=== PATIENT | female | born 1945 | race Caucasian/White ===

== ENCOUNTER 2017-03-06 10:31 | Emergency (ER) | payer MEDICARE, OTHER ==
--- OUTSIDE RECORDS SUMMARY | 2017-03-06 11:21 | XMS REPORT | Continuity of Care Document ---
:1945 Author Organization [facility] ([facility]) Address [address] [place] [address] Phone [phone] Care Team Providers Name Role Phone Chaan Garcia Primary Care Provider [phone] Source Comments This disclosure is being made pursuant to the Care Everywhere program, applicable federal and state laws, and may not contain all informaitonavailable regarding this patient.[facility] ([facility]) Active Allergies and Adverse Reactions Allergen Noted Date Severity Reactions Comments Nitrofuran Analogues Angioedema,OTHER Hand swelling Current Medications Prescription Sig. Disp. Refills Start End Status Date Date pravastatin 10 mg Take 10 mg by Active tablet mouth 3 times weekly. METOPROLOL tartrate Take 12.5 mg by Active 25 mg tablet mouth 2 times 5 daily. Biotin 10,000 mcg Take 10,000 mcg by Active cap mouth daily. methotrexate 2.5 mg Take 6 tablets (15 78 tablet 1 Active tablet mg total) by mouth 6 every week. folic acid 800 mcg 1.5 tabs daily 180 tablet 3 Active tablet except 6 tabs one 6 day a week. naproxen 500 mg Take 1 tablet (500 180 tablet 3 Active tablet mg total) by mouth 6 2 times daily with meals. cholecalciferol Take 1 tablet 100 tablet 3 Active (VITAMIN D3) 1,000 (1,000 Units 6 unit tablet total) by mouth daily. Frequency unknown LACTOBACILLUS COMBO Take 1 capsule by Active NO.6 (PROBIOTIC mouth daily. COMPLEX PO) adalimumab (HUMIRA) Inject 0.8 mL (40 6 Syringe 12 Active 40 mg/0.8 mL mg total) 7 injection syringe subcutaneously every 14 days. gabapentin Take 1 capsule 90 capsule 4 Active (NEURONTIN) 300 mg (300 mg total) by 7 capsule mouth at bedtime. predniSONE 5 mg Take 1-4 tablets 60 tablet 1 Active tablet (5-20 mg total) by 7 mouth daily. For RA flares. zinc 50 mg tablet Take 50 mg by Discontinued mouth daily. 017 gabapentin Take 2 capsules 180 capsule 3 Discontinued (NEURONTIN) 300 mg (600 mg total) by 5 017 capsule mouth at bedtime predniSONE 5 mg Take 1-4 tablets 60 tablet 1 Discontinued tablet (5-20 mg total) by 6 017 mouth daily. For RA flares. adalimumab (HUMIRA) Inject 0.8 mL (40 6 Syringe 1 Discontinued 40 mg/0.8 mL mg total) 7 017 injection syringe subcutaneously every 14 days. Active Problems Problem Noted Date Neuropathy 09/17/2015 Hair loss 02/24/2015 Paroxysmal supraventricular tachycardia 02/18/2014 Overview: Per patient, identified on recent Holter monitor exam spring 2013. Tx by PCP with beta uvaldo. Pseudogout 12/27/2013 Overview: R knee 12/27/2013, per crystal exam. 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 CCP confirmed [facility] 2013. Hep B screen: immune --see media for report entered 02/2014, test done 2010. TB screen negative 02/2014 Rx history: Prednisone: intermittent use leflunomide 2004, failed as monotherapy Methotrexate 2001, again ~2005 (prior to care at [facility]) - 11/2008, stopped for elevated transaminases. Restarted 10/2009 - (Standing lab order renewed for [facility] 2014) Adalimumab (Humira) 2005 - 04/2011, dc'ed d/t cost. Restarted 02/2014 Hydroxychloroquine 01/2012 - 02/2015, self dc'ed looking for etiology of hair loss. Osteoarthritis 08/26/2009 Overview: R 1st [facility] and knees Depression 08/26/2009 Fibromyalgia 08/26/2009 Hyperlipidemia 08/26/2009 Most Recent Encounters Date Type Specialty Providers Description 02/23/2017 Telephone Med Rheumatology May Saavedra Chief Comp: Lab MD Results 02/21/2017 Office Visit Pathology May Saavedra, Chief Comp: Patient MD Reported Reason For Lab Services, Pfp Visit 02/21/2017 Office Visit Med Rheumatology May Saavedra, Dx: Rheumatoid MD arthritis with rheumatoid factor of multiple sites without organ or systems involvement (Primary Dx) 02/06/2017 Telephone Med Rheumatology Dimas Worthington PA-C 12/23/2016 Refill Med Infectious Disease Dimas Worthington PA-C Dx: Rheumatoid arthritis with rheumatoid factor of multiple sites without organ or systems involvement (Primary Dx) 12/16/2016 Refill Med Rheumatology Dimas Worthington PA-C Dx: Rheumatoid arthritis with rheumatoid factor of multiple sites without organ or systems involvement (Primary Dx) Immunizations Name Dates Previously Given Next Due Hepatitis B, unspecified 05/26/2011,12/23/2010,11/25/2010 Influenza 07/26/2016,07/20/2015 Influenza, unspecified 07/29/2013,07/17/2012,06/30/2011,07/30,07/30/2007 Pneumococcal Conjugate, PCV13 (Prevnar 08/09/2016 13) Pneumococcal, unspecified 08/08/2007 Zoster, live (Zostavax) 03/16/2012 Social History Tobacco Use Types Packs/Day Years Used Date Former Smoker 1 4 Quit: 03/30/1968 Smokeless Tobacco: Never Used Tobacco Cessation:Counseling Given: Yes Comments: Alcohol Use Drinks/Week oz/Week Comments Yes 3 Standard drinks or equivalent 1.5 Last Filed Vital Signs Vital Sign Reading Time Taken Blood Pressure 145/83 02/21/2017 8:28 AM CDT Pulse 59 02/21/2017 8:28 AM CDT Temperature 35.7 C (96.3 F) 02/21/2017 8:28 AM CDT Respiratory Rate 16 02/19/2013 10:55 AM CDT Height 1.6 m (5' 2.99") 02/21/2017 8:28 AM CDT Weight 57.1 kg (125 lb 14.1 oz) 02/21/2017 8:28 AM CDT Body Mass Index 22.3 02/21/2017 8:28 AM CDT Oxygen Saturation - - Plan of Care Date Type Specialty Providers Description 08/23/2017 Appointment Med Rheumatology May Saavedra MD [address] [place] [address] [phone] (Fax) Chief Comp: Patient Ander, JOSE Cochran [address] [place] [address] [phone] (Fax) Reported Reason For Visit 02/09/2018 Appointment Med Rheumatology May Saavedra MD Chief Comp: Patient [address] [facility] [place] [address] Visit [phone] (Fax) Health Maintenance Due Date Last Done Comments HCV Screening 1945 Tdap Vaccine 1957 Lipid Disorder Screening 1964 Td Vaccine 1963 Mammogram 1986 Colonoscopy 04/15/1996 Osteoporosis Screening (DXA 2011 Bone Density) Pneumococcal Vaccine (2 of 2 08/09/2017 08/09/2016 - PPSV23) Hepatitis B Vaccine Completed 05/26/2011, 12/23/2010, 11/25/2010 Zoster Vaccine Completed 03/16/2012 Influenza Vaccine: Seasonal Completed 07/26/2016, Additional history exists 07/20/2015, 07/29/2013 Results from Last 3 Months C-REACTIVE PROTEIN (02/21/2017 9:32 AM) Component Value Range CRP (C-Reactive Protein) <0.5 <=0.5 mg/dL Specimen Blood TOTAL PROTEIN (02/21/2017 9:32 AM) Component Value Range Total Protein 6.7 6.0-8.0 g/dL Specimen Blood LACTATE DEHYDROGENASE (LDH) (02/21/2017 9:32 AM) Component Value Range LDH 218(H) 135-214 U/L Specimen Blood GAMMA GLUTAMYLTRANSPEPTIDASE (02/21/2017 9:32 AM) Component Value Range GGT 18 5-36 U/L Specimen Blood BILIRUBIN, TOTAL (02/21/2017 9:32 AM) Component Value Range Bilirubin Total 0.4 <=1.2 mg/dL Specimen Blood BILIRUBIN, DIRECT (02/21/2017 9:32 AM) Component Value Range Bilirubin, Direct <0.2 0.0-0.2 mg/dL Specimen Blood ASPARTATE AMINOTRANSFERASE (02/21/2017 9:32 AM) Component Value Range AST 23Comment: 0-32 U/L Adult reference ranges updated on 09/24/13 at 830am Specimen Blood ALKALINE PHOSPHATASE (02/21/2017 9:32 AM) Component Value Range ALP 77 35-104 U/L Specimen Blood ALBUMIN (02/21/2017 9:32 AM) Component Value Range Albumin 4.2 3.4-4.8 g/dL Specimen Blood ALANINE AMINOTRANSFERASE (02/21/2017 9:32 AM) Component Value Range ALT 23Comment: 0-33 U/L The upper limit of normal for alanine aminotransferase (ALT) reference ranges for adults is controversial with some authorities recommending limit as low as 30 U/L for males and 19 U/L for females. Th ere is increased incidence of subclinical liver disease (e.g., early steatohepatitis) in patients with ALT values in the range of 31-41 U/L for males and 20-33 U/L for females. ALT values should alway s be interpreted in conjunction with clinical history, physical examination findings, and, if applicable, data from other diagnostic tests. Specimen Blood EXTERNAL MISCELLANEOUS LAB (02/06/2017) Component Value Range Ext WBC Count 4.1 4.0-10.5 K/MM3 Ext Hemoglobin 14.2 12.5-16.0 G/DL Ext MCV (Mean Corpuscular Volume) 96.8 78-100 FL Ext Platelet Count 240 150-450 K/MM3 Ext Creatinine 0.58 0.4-1.4 MG/DL Ext Albumin 3.6 3.4-5.0 G/DL Ext ALT 105(A) 19-67 U/L Ext AST 84(A) 0-48 U/L
--- NOTE | 2017-03-06 11:48 | ERNOTE ---
Medical Problem HPI - Narrative Date of Service: 03/06/17 - General Chief Complaint: General Assessment Time Seen by Provider: 03/06/17 10:45 Source: patient - Immun/Allergies/Home Medications Immunizations: IMMUNIZATION HX History of Influenza Vaccine Yes Hx Pneumococcal Vaccination Yes Allergies/Adverse Reactions: Allergies nitrofurantoin [From Macrodantin] Allergy (Verified 03/06/17 10:43) Home Medications: HOME MEDICATIONS Adalimumab [Humira] 40 mg SQ DAILY 03/06/17 [Last Taken Unknown] Biotin 5,000 mcg PO DAILY 03/06/17 [Last Taken Unknown] Cholecalciferol (Vitamin D3) [Vitamin D3] 1,000 unit PO DAILY 03/06/17 [Last Taken Unknown] Folic Acid 0.8 mg PO DAILY 03/06/17 [Last Taken Unknown] Gabapentin [Neurontin] 600 mg PO HS 03/06/17 [Last Taken Unknown] L.acidoph,Paracasei, B.lactis [Probiotic] 1 each PO DAILY 03/06/17 [Last Taken Unknown] Meclizine HCl [Antivert] 12.5 mg PO Q6H PRN #30 tab 03/06/17 [Last Taken Unknown ] Methotrexate Sodium [Methotrexate] 2.5 mg PO DAILY 03/06/17 [Last Taken Unknown] Metoprolol Tartrate [Lopressor] 12.5 mg PO BID 03/06/17 [Last Taken Unknown] Naproxen [Naprosyn] 500 mg PO DAILY 03/06/17 [Last Taken Unknown] Pravastatin Sodium 10 mg PO DAILY 03/06/17 [Last Taken Unknown] predniSONE [Prednisone] 5 mg PO DAILY 03/06/17 [Last Taken Unknown] - History of Present History Narrative: patient presents to the ER for dizzyness and elevated BP. Date (Duration): 03/06/17 Timing: constant Severity: mild Modifying Factors - (Worsens): Present: movement Review of Systems - Review of Systems Constitutional: Present: See HPI. Absent: fever, weakness, fatigue, malaise EYE: Present: no symptoms reported ENT: Present: no symptoms reported Respiratory: Present: no symptoms reported Cardiology: Present: See HPI, other - elevated bp at home Gastrointestinal/Abdominal: Present: no symptoms reported Genitourinary: Present: no symptoms reported Musculoskeletal: Present: no symptoms reported Skin: Present: no symptoms reported Neurological: Present: See HPI, dizziness/light-headedness Endocrine: Present: no symptoms reported Hematologic/Lymphatic: Present: no symptoms reported Psych: Present: no symptoms reported - Patient's Past Medical History Patient History - Medical: Arthritis Patient History - Cardiac/Respiratory: Hypertension, Hyperlipidemia Patient History - Cancer: No Hx of Cancer Patient History - Other: None - Social History Living Situations: home Psych History: No pertinent hx Alcohol Use: none Drug Use: none - Immunizations Hx Pneumococcal Vaccination: Yes History of Influenza Vaccine: Yes Physical Exam - Physical Exam Narrative: patients exam normal except she feels dizzy. General Appearance: Present: wd/wn, alert, no apparent distress, anxious Eye Exam: Normal inspection: bilateral Ears, Nose, Throat: Present: normal ENT inspection. Absent: nasal congestion, sinus pain/drainage, pharyngeal erythema Neck: Present: normal inspection, nontender, full range of motion Respiratory: Present: no respiratory distress, normal breath sounds, no accessory muscle use, chest nontender, lungs clear. Absent: respiratory distress, accessory muscle use, decreased breath sounds Cardiovascular/Chest: Present: regular rate, rhythm, no murmur, normal peripheral pulses. Absent: chest tenderness Gastrointestinal/Abdominal: Present: normal bowel sounds, nontender, soft. 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 Absent: motor weakness Skin Exam: Present: normal color, warm/dry Lymphatic Exam: Present: no adenopathy ED Progress - Results and Orders Patient's Lab Results:: I have reviewed the patient's lab results. Results and Orders: no acute process - Vital Signs Patient's Vital Signs:: I have reviewed the patient's vital signs. Vital Signs: Vital Signs 03/06/17 03/06/17 10:35 10:58 Temperature 36.1 C L Pulse Rate 66 66 Respiratory 12 Rate Blood Pressure 156/97 O2 Sat by Pulse 99 Oximetry - EKG EKG: NSR EKG read: Reviewed by me EKG Comments: ER attending interp - CT/Ultrasound CT/Ultrasound Narrative: HISTORY: dizziness Dizziness since waking up this morning. Nausea. History of high blood pressure. TECHNIQUE: Multiple noncontrast axial CT images of the head were obtained. COMPARISON: No prior study available. FINDINGS: CT Head W/O Contrast *: Age-related cortical atrophy and periventricular white matter chronic ischemic changes are present. Intracranial atherosclerotic calcifications noted. No acute intracranial hemorrhage. No midline shift or herniation. Jimenez and white matter differentiation is grossly intact. No obvious soft tissue swelling or scalp hematoma noted. Skull grossly intact, without signs of depressed skull fracture. Visualized portions of the paranasal sinuses are clear. Mastoid air cells are grossly clear. IMPRESSION: No acute intracranial hemorrhage or mass effect. Electronically signed by Forrest Moralez M.D.. - Progress/Reassessment Chief Complaint: General Assessment Progress:: Improved Plan - Plan Plan: Patient was given 12.5 of meclizine for dizziness. After medication patient's was able to walk and states she is feeling better and less dizzy. Departure - Departure Clinical Impression: Vertigo Disposition: Home Follow Up Needed Condition: Good Instructions: Vertigo, Lsll-ab-Tzys Additional Instructions: Continue any previous home medications as directed. You may take your medication as needed. Follow up with her primary care provider in the next 2-3 days. Return to the emergency rooms of symptoms return or become worse. Referrals: Chana Garcia MD [Primary Care Provider] - Prescriptions: Meclizine HCl [Antivert] 12.5 mg PO Q6H PRN #30 tab PRN Reason: DIZZINESS
[2017-03-06 11:52] LABS: Hematocrit 45.9 % (37.0-47.0); Hemoglobin 15.6 gm/dL (12.5-16.0); Mean Cell Volume 93.5 fl (78-100); Mean Corpuscular Hemoglobin 31.8 pg (27-31); Neutrophil # 4.1 K/mm3 (1.3-6.0); Neutrophil % 66.7 % (42-75.0); Platelet Count 263 K/mm3 (150-450); Red Blood Count 4.91 M/mm3 (4.2-5.4); Red Cell Distribution Width 11.9 % (11.5-14.0); White Blood Count 6.1 K/mm3 (4.0-10.5)
[2017-03-06 12:05] LABS: Urine Bilirubin Negative (NEGATIVE); Urine Blood Negative /ul (NEGATIVE); Urine Ketone Negative (NEGATIVE); Urine Nitrite Negative (NEGATIVE); Urine Protein Negative (NEGATIVE); Urine Specific Gravity <=1.005 SP.GR. (1.005-1.010); Urine Urobilinogen Normal (NORMAL)
[2017-03-06 12:05] LABS: ALT 34 U/L (19-67); AST 26 U/L (0-48); Albumin * 3.9 gm/dl (3.4-5.0); Alkaline Phosphatase * 81 U/L (50-170); Anion Gap 14.2 mmol/L (6.8-13.8); BUN/Creatinine Ratio 17.6 (9.0-21.6); Bilirubin, Total 0.5 mg/dL (0.0-1.1); Blood Urea Nitrogen 12 mg/dL (3-23); Ca. Corrected For Albumin 9.3 mg/dL (8.4-10.2); Calcium * 9.5 mg/dL (7.9-10.9); Carbon Dioxide 27.5 mmol/L (24-32.6); Chloride 107 mmol/L (97-106); Glucose * 93 mg/dL (70-110); Potassium 4.7 mmol/L (3.4-4.6); Sodium 144 mmol/L (132-142); Total Protein 6.9 gm/dL (6.2-8.2); Troponin I Less than 0.017 ng/ml (0.00-0.10)
[2017-03-06 12:09] LABS: Urine Appearance Clear; Urine Bacteria None Seen; Urine Color Yellow; Urine RBC None Seen /hpf (0-5); Urine WBC None Seen /hpf (0-5)
[2017-03-06] MEDS ORDERED: MECLIZINE HCL 25 MG TABLET PO ONE (12:25)
[2017-03-06] MEDS ORDERED: MECLIZINE HCL 25 MG TABLET ONE (12:31)
[2017-03-06 13:06] VITALS: BP 146/78
== END 2017-03-06 13:21 | disposition home or self-care (01) ==
LOC: ER 10:31
DX: R42 Dizziness and giddiness (principal); M19.90 Unspecified osteoarthritis, unspecified site; I10 Essential (primary) hypertension; E78.5 Hyperlipidemia, unspecified